=== PATIENT | male | born 1985 | race Caucasian/White ===

== ENCOUNTER 2020-02-22 14:27 | Emergency (ER) | payer OTHER, SELFPAY ==
[2020-02-22 14:43] VITALS: BP 142/74; PULSE 76; RESP 16; TEMP 36.8; O2SAT 99; BMI 24.2
--- NOTE | 2020-02-22 14:43 | DI.CT.S_ITS ---
PROCEDURE: CT HEAD/BRAIN WO CON INDICATIONS: right arm numbness / tingling, leg tingling, headache TECHNIQUE: Noncontrast 4.5 mm thick angled axial sections acquired from the foramen magnum to the vertex, with coronal and sagittal reformats. For radiation dose reduction, the following was used: automated exposure control, adjustment of mA and/or kV according to patient size. COMPARISON: None. FINDINGS: Image quality: Excellent. CSF spaces: Basal cisterns are patent. No extra-axial fluid collections. Ventricles are normal in size and shape. Brain: No midline shift. No intracranial masses or hemorrhage. Miller-white matter interface is normal. Skull and face: Calvarium and visualized facial bones are intact, without suspicious lesions. Sinuses: Visualized sinuses and mastoids are clear but there is evidence of a prior sinus surgery bilaterally resecting the medial wall of each maxillary sinus. A rounded masslike structure in the right nasal airway is visualized at the single lowest CT slice that includes that area, only partially visualized, and measuring an estimated 1.5 cm in diameter.. IMPRESSION: The brain parenchyma appears normal, no intracranial hemorrhage is found. At the lowest slice of the scan there is a rounded 1.5 cm masslike structure in the left nasal airway anteriorly. This structure is only partially visualized, and is associated with prior resection of the medial wall of each maxillary sinus. ENT consultation and consideration of sinus CT scanning is recommended. Dictated by: Arnaldo Moses M.D. on 02/22/2020 at 15:26 Approved by: Arnaldo Moses M.D. on 02/22/2020 at 15:28
[2020-02-22 15:30] VITALS: BP 129/79; PULSE 70; RESP 16; O2SAT 100
[2020-02-22 15:51] LABS: Add Manual Diff / Slide Review NO; Basophils Absolute Auto 100 /uL (0-100); Basophils Percent Auto 1.1 % (0-2); Eosinophils Absolute Auto 200 /uL (0-450); Eosinophils Percent Auto 2.3 % (2-4); Hematocrit 42.1 % (41-53); Hemoglobin 13.9 g/dL (13.5-17.5); Lymphocytes Absolute Auto 1700 /uL (1100-4500); Monocytes Absolute Auto 600 /uL (0-900); Monocytes Percent Auto 8.5 % (3-14); Neutrophils Absolute Auto 4100 /uL (1500-7000); Neutrophils Percent Auto 62.1 % (50-75); Platelet Count 166 X10^3/uL (150-400); Red Blood Cell Count 4.48 X10^6/uL (4.5-5.9); Red Cell Distribution Width 13.8 % (11.6-14.8); White Blood Cell Count 6.6 X10^3/uL (4.5-11.0)
[2020-02-22 15:52] LABS: INR 0.9 (0.9-1.3); Prothrombin Time 10.5 SECONDS (10.1-12.7)
[2020-02-22 15:55] LABS: PTT Partial Thromboplastin Tim 39 SECONDS (26.4-36.2)
[2020-02-22 16:00] LABS: Alanine Aminotransferase 15 IU/L (<50); Albumin 4.1 g/dL (3.5-5.0); Albumin Globulin Ratio 1.7 (1.0-2.8); Alkaline Phosphatase 57 U/L (38-126); Aspartate Aminotransferase 26 IU/L (17-59); BUN Creatinine Ratio 7.9 (6-22); Bilirubin Total 0.4 mg/dL (0.2-1.3); Blood Urea Nitrogen 6 mg/dL (9-20); Calcium 8.3 mg/dL (8.4-10.2); Carbon Dioxide 31 mmol/L (22-32); Chloride 103 mmol/L (98-107); Estimated Glomerular Filt Rate > 60.0 mL/min (>60); Globulin 2.4 g/dL (1.7-4.1); Glucose 78 mg/dL (70-100); HEMOLYSIS < 15 (0-50); Sodium 138 mmol/L (137-145); Total Protein 6.5 g/dL (6.3-8.2)
[2020-02-22] MEDS: SODIUM CHLORIDE 0.9% 1,000 ML 1000 ML IV (16:04)
[2020-02-22] MEDS: METOCLOPRAMIDE 10 MG/2 ML INJ IV (16:04)
[2020-02-22] MEDS: KETOROLAC 60 MG/2 ML VIAL 15 MG IV (16:06)
[2020-02-22] MEDS: diphenhydrAMINE 50 MG/ML VIAL 25 MG IV (16:08)
[2020-02-22 16:33] LABS: Creatine Kinase 138 U/L (55-170)
[2020-02-22 16:46] LABS: Troponin I < 0.012 ng/mL (0.01-0.034)
[2020-02-22 16:49] LABS: CKMB % Relative Index 0.5 % (1.5-5.0); Creatine Kinase MB 0.69 ng/mL (<2.37)
[2020-02-22 17:05] VITALS: PULSE 65; O2SAT 98
[2020-02-22 17:07] VITALS: BP 114/72; PULSE 61; O2SAT 98
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
[2020-02-22 17:30] VITALS: PULSE 60; O2SAT 99
[2020-02-22 17:44] LABS: Creatine Kinase 123 U/L (55-170)
[2020-02-22 17:56] LABS: Troponin I < 0.012 ng/mL (0.01-0.034)
[2020-02-22 17:59] LABS: CKMB % Relative Index 0.4 % (1.5-5.0); Creatine Kinase MB 0.55 ng/mL (<2.37)
[2020-02-22 18:00] VITALS: BP 137/76; PULSE 55; O2SAT 99
== END 2020-02-22 18:27 | disposition home or self-care (01) ==
PROVIDERS: Emergency Provider Nurse Practitioner Family
DX: J34.89 Other specified disorders of nose and nasal sinuses (principal); R94.31 Abnormal electrocardiogram [ECG] [EKG]; R20.0 Anesthesia of skin; H53.8 Other visual disturbances; R11.0 Nausea; R51.9 Headache, unspecified
CPT/HCPCS: 36415; 70450; 80053; 81003; 82550; 82553; 84484; 85025; 85610; 85730; 93005; 93010; 96361; 96374; 96375; 99284; J1200; J1885; J2765

== ENCOUNTER 2021-02-10 11:35 | Emergency (ER) | payer OTHER, SELFPAY ==
[2021-02-10 11:40] VITALS: BP 119/70; PULSE 80; RESP 14; TEMP 36.9; O2SAT 96; BMI 24.2
--- NOTE | 2021-02-10 11:50 | ED.URI ---
HPI - URI/Sore Throat General Chief Complaint: Upper Respiratory Symptoms Stated Complaint: COVID Symptoms Time Seen by Provider: 02/10/21 11:45 Source: patient Mode of arrival: Ambulatory Limitations: no limitations History of Present Illness HPI Narrative: Patient here for COVID testing. One week of cough cold congestion nasal congestion. Slight short of breath at times. Denies any medical problems. No heart attack strokes or diabetes. No lung issues, no asthma. Does not smoke. Sick contacts include his children. They do go to school. Has same symptoms. No loss of taste or smell. Vital signs reassuring Related Data Previous Rx's Medication Instructions Recorded ondansetron 4 mg disintegrating 4 mg PO BID-TID PRN #7 tab 02/22/20 tablet Allergies Allergy/AdvReac Type Severity Reaction Status Date / Time Penicillins Allergy Unknown unsure Verified 02/10/21 11:43 Review of Systems Review of Systems Narrative: GENERAL: Denies chills, fatigue, malaise, fever, sweats. HEENT: Denies sinus pain, ear pain, sore throat, positive nasal congestion RESPIRATORY: Positivedyspnea, cough CARDIOVASCULAR: Denies chest pain, palpitations GASTROINTESTINAL: Denies nausea, vomiting, abdominal pain : Denies dysuria, frequency, hematuria MUSCULOSKELETAL: denies muscle or bony pain SKIN: Denies rash, skin lesions NEUROLOGIC: Denies weakness, numbness ROS Unobtainable: All systems reviewed & are unremarkable except as noted in HPI and below Patient History Medical History (Updated 02/10/21 @ 12:28 by Dayton Pandey MD) TBI (traumatic brain injury) Surgical History History of shoulder surgery Social History Smoking Status: Current every day smoker Smoking Status: Current every day smoker alcohol intake frequency: 0-2 drinks per day Substance Use Type: does not use Exam Narrative Exam Narrative: GENERAL: in no distress, not toxic not dyspneic HEAD: Normocephalic. EYES: Pupils equal round No scleral icterus. ENT: Mucous membranes moist. Bilateral nasal mucosa edema NECK: Trachea midline. CARDIOVASCULAR: Regular rate and rhythm without murmurs RESPIRATORY: Clear to auscultation. Breath sounds equal bilaterally. No wheezes, rales, or rhonchi. Speaking full sentences NEURO: AOx4. SKIN: Warm and dry PSYCH: Not anxious, is cooperative Initial Vital Signs Initial Vital Signs: Vital Signs Temperature 98.4 F 02/10/21 11:40 Pulse Rate 80 02/10/21 11:40 Respiratory Rate 14 02/10/21 11:40 Blood Pressure 119/70 02/10/21 11:40 Pulse Oximetry 96 02/10/21 11:40 Course Course Course Narrative: No new issues during course of stay Orders Ordered: ED Orders 02/10/21 11:40 COVID19 -Nasal swab/Pre-Proc Stat Reevaluation(s) Reevaluation #1: Reviewed results with patient. Not toxic. Agrees with treatment plan. Follow-up primary care in a week. Time: 12:29 Vital Signs Vital signs: Vital Signs - 8 hr 02/10/21 11:40 Temperature 98.4 F Pulse Rate 80 Respiratory Rate 14 Blood Pressure 119/70 Pulse Oximetry 96 MDM - URI/Sore Throat Differential Diagnosis Differential diagnosis: Likely upper respiratory infection, viral infection, bronchitis, influenza and other (COVID) Lab Data Labs: Lab Results 02/10/21 Range/Units 11:40 SARS-CoV-2 (PCR) Negative (Negative) MDM Narrative Medical decision making narrative: Appropriate for discharge home. Exam and labs reassuring. No imaging indicated. No hypoxia. No tachypnea. Clear lung sounds on exam. Return precautions reviewed with patient. Agrees with treatment plan. Discharge Plan Departure Patient Disposition: Home Clinical Impression: Upper respiratory infection Qualifiers: URI type: unspecified URI Qualified Code(s): J06.9 - Acute upper respiratory infection, unspecified Instructions: DI for Viral Upper Respiratory Infection -- Adult Activity Restrictions/Additional Instructions: Return if worsening questions concerns. See family doctor in a week for recheck. Keep well hydrated. Call provided referral line if he needs a family doctor. Prescriptions: No Action ondansetron 4 mg tablet,disintegrating 4 mg PO BID-TID PRN (Reason: nausea and vomiting) Qty: 7 RF: 0 Referrals: [facility] [Outside]
[2021-02-10 12:08] LABS: COVID19 -Nasal RAPID Negative (Negative)
== END 2021-02-10 12:48 | disposition home or self-care (01) ==
PROVIDERS: Emergency Provider Emergency Medicine
DX: J06.9 Acute upper respiratory infection, unspecified (principal); Z20.822 Contact with and (suspected) exposure to COVID-19
CPT/HCPCS: 87635; 99281; 99282; C9803

== ENCOUNTER 2021-12-28 17:39 | Emergency (ER) | payer OTHER, SELFPAY ==
[2021-12-28 18:18] VITALS: BP 153/80; PULSE 82; RESP 18; TEMP 37.1; O2SAT 97
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
== END 2021-12-28 21:59 | disposition left against medical advice (07) ==
PROVIDERS: Emergency Provider Emergency Medicine
DX: S52.591A Other fractures of lower end of right radius, initial encounter for closed fracture (principal)
CPT/HCPCS: 73110; 99281